=== PATIENT | male | born 1950 | race Caucasian/White ===

== ENCOUNTER 2019-10-06 10:39 | Inpatient (IN) ==
[2019-10-06] MEDS ORDERED: ONDANSETRON 4 MG/2 ML VIAL IV ONE (11:18)
[2019-10-06] MEDS ORDERED: HYDROmorphone 2 MG/1 ML VIAL IV STA ×3 (11:19→14:58)
[2019-10-06] MEDS ORDERED: SODIUM CHLORIDE 0.9% 1,000 ML IV STA (11:40)
[2019-10-06 11:50] LABS: Basophils # 0.1 10*3/uL (0.0-0.2); Basophils % 0.3 % (0.0-0.8); Eosinophils # 0.1 10*3/uL (0.0-0.87); Eosinophils % 0.6 % (0.00-10.9); Hematocrit 56.9 VOL% (42.0-52.0); Hemoglobin 18.6 GM/DL (14.0-18.0); Immature Granulocytes % 0.5 %; Immature Granulocytes Absolute 0.08 #; Lymphocytes # 1.7 10*3/uL (1.4-4.0); Lymphocytes % 10.9 % (21.2-54.2); Mean Corpuscular HGB Conc 32.7 GM/DL (32-36); Mean Corpuscular Volume 89.6 FL (87-102); Monocytes % 7.5 % (1.7-12.7); Neutrophils % 80.2 % (38.7-73.9); Platelet Count 246 T/CUMM (130-400); Red Blood Count 6.35 MC/CUMM (3.8-5.5); Red Cell Distribution Width 13.2 % (9.3-17.3); White Blood Count 15.5 T/CUMM (4-12)
[2019-10-06 12:19] LABS: Albumin 4.2 G/DL (3.4-5.0); Bilirubin,Total 0.8 MG/DL (0.2-1.0); Calcium 9.9 MG/DL (8.5-10.1); Osmolality,Calculated 279.8 MOS/KG (273-304)
[2019-10-06] MEDS ORDERED: ONDANSETRON 4 MG/2 ML VIAL IV STA (12:42)
[2019-10-06 14:07] LABS: Apearance,Urine CLEAR (Clear); Bilirubin,Urine Negative (Negative); Blood, Urine Negative (Negative); Glucose,Urine (UA) >=500 mg/dL (Negative); Ketones,Urine Negative (Negative); Mucus,Urine Occasional /LPF (Occasional); Nitrite,Urine Negative (Negative); Protein,Urine Negative; Squamous Epithelial Cell,Urine Occasional /HPF (0-10); Urine Color Yellow (Yellow); Urine Specific Gravity 1.046 (1.001-1.035); Urine Urobilinogen < 2.0 EU/DL (0.2-1.0)
[2019-10-06] MEDS ORDERED: PANTOPRAZOLE 40 MG VIAL IV STA (14:31)
[2019-10-06] MEDS ORDERED: CIPROFLOXACIN INJ 400 MG in PREMIX 1 EACH IV STA (14:32)
[2019-10-06] MEDS ORDERED: metroNIDAZOLE INJ 500 MG in PREMIX 1 EACH IV STA (14:32)
[2019-10-06] MEDS ORDERED: ONDANSETRON 4 MG/2 ML VIAL IV PRN (14:50)
[2019-10-06] MEDS: LACTATED RINGERS 1,000 ML IV SCH ×2 (15:29→23:42)
[2019-10-06] MEDS ORDERED: GLUCAGON 1 MG VIAL IM PRN (17:01)
[2019-10-06] MEDS ORDERED: DEXTROSE 50% 25 GM/50 ML VIAL IV PRN (17:01)
[2019-10-06] MEDS: CIPROFLOXACIN INJ 400 MG in PREMIX 1 EACH IV SCH (17:07)
[2019-10-06] MEDS: metroNIDAZOLE INJ 500 MG in PREMIX 1 EACH IV SCH (17:48)
[2019-10-06] MEDS: PANTOPRAZOLE 40 MG VIAL IV SCH (21:11)
[2019-10-06] MEDS: HYDROmorphone 2 MG/1 ML VIAL IV PRN (21:11)
[2019-10-06] MEDS: INSULIN LISPRO 100 UNIT/ML SUBCUT SCH (21:14)
[2019-10-07] MEDS: metroNIDAZOLE INJ 500 MG in PREMIX 1 EACH IV SCH ×3 (02:19→17:46)
[2019-10-07] MEDS: HYDROmorphone 2 MG/1 ML VIAL IV PRN ×2 (03:33→22:18)
[2019-10-07] MEDS: CIPROFLOXACIN INJ 400 MG in PREMIX 1 EACH IV SCH ×2 (04:47→16:41)
[2019-10-07 06:36] LABS: Albumin 3.2 G/DL (3.4-5.0); Bilirubin,Total 0.6 MG/DL (0.2-1.0); Calcium 9.2 MG/DL (8.5-10.1); Osmolality,Calculated 276.8 MOS/KG (273-304); Total Protein 6.3 G/DL (6.4-8.3)
[2019-10-07] MEDS: LACTATED RINGERS 1,000 ML IV SCH ×2 (06:40→16:53)
[2019-10-07 06:41] LABS: Basophils % 0.2 % (0.0-0.8); Eosinophils # 0.4 10*3/uL (0.0-0.87); Eosinophils % 3.6 % (0.00-10.9); Hematocrit 48.3 VOL% (42.0-52.0); Immature Granulocytes % 0.6 %; Immature Granulocytes Absolute 0.06 #; Lymphocytes # 2.2 10*3/uL (1.4-4.0); Lymphocytes % 22.6 % (21.2-54.2); Mean Corpuscular HGB Conc 32.3 GM/DL (32-36); Mean Corpuscular Volume 91.8 FL (87-102); Mean Platelet Volume 9.2 FL (9.6-12.0); Monocytes % 10.6 % (1.7-12.7); Neutrophils % 62.4 % (38.7-73.9); Red Blood Count 5.26 MC/CUMM (3.8-5.5); Red Cell Distribution Width 13.1 % (9.3-17.3)
[2019-10-07 06:52] LABS: Hemoglobin 15.6 GM/DL (14.0-18.0); Platelet Count 191 T/CUMM (130-400); White Blood Count 9.7 T/CUMM (4-12)
[2019-10-07] MEDS: INSULIN LISPRO 100 UNIT/ML SUBCUT SCH ×4 (08:39→22:23)
[2019-10-07] MEDS ORDERED: PANTOPRAZOLE 40 MG VIAL IV SCH (09:00)
[2019-10-07] MEDS: PANTOPRAZOLE 40 MG VIAL IV SCH ×2 (09:46→22:18)
[2019-10-07] MEDS ORDERED: BISACODYL 5 MG TABLET PO PRN (16:48)
[2019-10-08] MEDS: LACTATED RINGERS 1,000 ML IV SCH ×4 (00:21→23:21)
[2019-10-08] MEDS: metroNIDAZOLE INJ 500 MG in PREMIX 1 EACH IV SCH ×3 (02:07→17:22)
[2019-10-08] MEDS: CIPROFLOXACIN INJ 400 MG in PREMIX 1 EACH IV SCH ×2 (04:51→16:21)
[2019-10-08] MEDS: INSULIN LISPRO 100 UNIT/ML SUBCUT SCH ×4 (07:38→20:52)
[2019-10-08] MEDS ORDERED: propofoL 200 MG/20 ML VIAL IV ONE (09:00)
[2019-10-08] MEDS ORDERED: LIDOCAINE 100 MG/5 ML SYRINGE ONE (09:00)
[2019-10-08] MEDS: PANTOPRAZOLE 40 MG VIAL IV SCH ×2 (10:02→20:52)
[2019-10-08] MEDS: HYDROmorphone 2 MG/1 ML VIAL IV PRN ×2 (11:02→20:58)
[2019-10-09] MEDS: metroNIDAZOLE INJ 500 MG in PREMIX 1 EACH IV SCH ×3 (01:17→17:49)
[2019-10-09] MEDS: CIPROFLOXACIN INJ 400 MG in PREMIX 1 EACH IV SCH ×2 (04:15→16:45)
[2019-10-09] MEDS: INSULIN LISPRO 100 UNIT/ML SUBCUT SCH ×4 (08:03→21:06)
[2019-10-09] MEDS: PANTOPRAZOLE 40 MG VIAL IV SCH ×2 (08:33→21:07)
[2019-10-09] MEDS ORDERED: BUPIVACAINE MPF 0.25% 30 ML VIAL ONE (10:39)
[2019-10-09] MEDS ORDERED: LIDOCAINE 1%/EPI INJ 20 ML VIAL ONE (10:39)
[2019-10-09] MEDS ORDERED: TISSUE ADHESIVE 1 EACH APPLICATOR TOP ONE (10:39)
[2019-10-09] MEDS: LACTATED RINGERS 1,000 ML IV SCH (10:52)
[2019-10-09] MEDS ORDERED: LIDOCAINE 2% 5 ML VIAL ONE (13:06)
[2019-10-09] MEDS ORDERED: SEVOFLURANE 1 UNIT/15 MINUTE INH ONE (13:06)
[2019-10-09] MEDS ORDERED: propofoL 200 MG/20 ML VIAL IV ONE (13:06)
[2019-10-09] MEDS ORDERED: MIDAZOLAM 2 MG/2 ML VIAL ONE (13:07)
[2019-10-09] MEDS ORDERED: ONDANSETRON 4 MG/2 ML VIAL ONE (13:07)
[2019-10-09] MEDS ORDERED: ESMOLOL 100 MG/10 ML VIAL IV ONE (13:07)
[2019-10-09] MEDS ORDERED: fentaNYL 100 MCG/2 ML VIAL ONE (13:07)
[2019-10-09] MEDS ORDERED: KETOROLAC 30 MG/1 ML VIAL ONE (13:07)
[2019-10-09] MEDS ORDERED: GLYCOPYRROLATE 0.4 MG/2 ML VIAL ONE (13:07)
[2019-10-09] MEDS ORDERED: DEXAMETHASONE 4 MG/1 ML VIAL ONE (13:07)
[2019-10-09] MEDS ORDERED: ROCURONIUM 100 MG/10 ML VIAL IV ONE (13:08)
[2019-10-09] MEDS ORDERED: SUCCINYLCHOLINE 200 MG/10 ML VIAL ONE (13:08)
[2019-10-09] MEDS ORDERED: LACTATED RINGERS 1,000 ML IV ONE (13:08)
[2019-10-09] MEDS ORDERED: ACETAMINOPHEN 1,000 MG/100 ML VIAL IV ONE (13:08)
[2019-10-09] MEDS ORDERED: NEOSTIGMINE 10 MG/10 ML VIAL ONE (13:08)
[2019-10-09] MEDS ORDERED: PHENYLEPHRINE 1 MG/10 ML SYRINGE IV ONE (13:08)
[2019-10-09] MEDS ORDERED: diphenhydrAMINE 50 MG/1 ML VIAL IV PRN (13:10)
[2019-10-09] MEDS ORDERED: MEPERIDINE 25 MG/1 ML VIAL IV PRN (13:10)
[2019-10-09] MEDS ORDERED: ONDANSETRON 4 MG/2 ML VIAL IV PRN (13:10)
[2019-10-09] MEDS ORDERED: HYDROmorphone 2 MG/1 ML VIAL IV PRN (13:10)
[2019-10-09] MEDS ORDERED: PROMETHAZINE INJ 25 MG in SODIUM CHLORIDE 0.9% 50 ML IV PRN (13:10)
[2019-10-10] MEDS: LACTATED RINGERS 1,000 ML IV SCH ×2 (01:11→01:13)
[2019-10-10] MEDS: metroNIDAZOLE INJ 500 MG in PREMIX 1 EACH IV SCH (01:14)
[2019-10-10] MEDS: CIPROFLOXACIN INJ 400 MG in PREMIX 1 EACH IV SCH (04:20)
[2019-10-10 04:53] LABS: Calcium 9.1 MG/DL (8.5-10.1); Osmolality,Calculated 273.2 MOS/KG (273-304)
[2019-10-10 05:22] LABS: Basophils % 0.2 % (0.0-0.8); Eosinophils # 0.1 10*3/uL (0.0-0.87); Eosinophils % 0.5 % (0.00-10.9); Hematocrit 45.9 VOL% (42.0-52.0); Hemoglobin 15.6 GM/DL (14.0-18.0); Immature Granulocytes % 0.4 %; Immature Granulocytes Absolute 0.04 #; Lymphocytes # 1.8 10*3/uL (1.4-4.0); Lymphocytes % 16.6 % (21.2-54.2); Mean Corpuscular Volume 87.3 FL (87-102); Monocytes % 7.3 % (1.7-12.7); Platelet Count 206 T/CUMM (130-400); Red Blood Count 5.26 MC/CUMM (3.8-5.5); Red Cell Distribution Width 12.2 % (9.3-17.3); White Blood Count 10.8 T/CUMM (4-12)
[2019-10-10 05:33] VITALS: BP 132/57
[2019-10-10] MEDS: PANTOPRAZOLE 40 MG VIAL IV SCH (09:30)
[2019-10-10] MEDS: INSULIN LISPRO 100 UNIT/ML SUBCUT SCH (09:45)
== END 2019-10-10 10:00 | disposition home or self-care (01) | DRG 419 ==
LOC: N.ED 10:39 → N.EDINP 14:50 → N.TELES 15:59
PROVIDERS: ADMIT Internal Medicine; ATTEND Internal Medicine
PROC: LAPCHOL (2019-10-09 11:17)

== ENCOUNTER 2020-12-22 09:27 | Inpatient (IN) ==
[2020-12-22] MEDS ORDERED: ONDANSETRON 4 MG/2 ML VIAL IV STA (10:03)
[2020-12-22] MEDS ORDERED: SODIUM CHLORIDE 0.9% 1,000 ML IV STA (10:03)
[2020-12-22] MEDS ORDERED: MORPHINE 2 MG/1 ML SYRINGE IV STA (10:04)
[2020-12-22] MEDS ORDERED: PANTOPRAZOLE 40 MG VIAL IV STA (10:04)
[2020-12-22 10:14] LABS: Basophils % 0.2 % (0.0-0.8); Hematocrit 52.4 VOL% (42.0-52.0); Immature Granulocytes % 0.8 %; Immature Granulocytes Absolute 0.12 #; Lymphocytes # 1.4 10*3/uL (1.4-4.0); Lymphocytes % 9.7 % (21.2-54.2); Mean Corpuscular HGB Conc 32.4 GM/DL (32-36); Mean Corpuscular Volume 87.9 FL (87-102); Mean Platelet Volume 9.2 FL (9.6-12.0); Monocytes % 4.4 % (1.7-12.7); Neutrophils % 84.9 % (38.7-73.9); Platelet Count 339 T/CUMM (130-400); Red Blood Count 5.96 MC/CUMM (3.8-5.5); Red Cell Distribution Width 13.2 % (9.3-17.3); White Blood Count 14.9 T/CUMM (4-12)
[2020-12-22 10:38] LABS: Albumin 4.5 G/DL (3.4-5.0); Bilirubin,Total 0.6 MG/DL (0.20-1.00); Potassium 4.2 MMOL/L (3.5-5.1)
[2020-12-22] MEDS ORDERED: HYDROmorphone 2 MG/1 ML VIAL ONE (10:40)
[2020-12-22] MEDS ORDERED: HYDROmorphone 2 MG/1 ML VIAL IV STA (10:41)
[2020-12-22 11:01] LABS: Amorphous Crystals,Urine Few /HPF (Few); Bilirubin,Urine Negative (Negative); Blood, Urine Negative (Negative); Glucose,Urine (UA) >=500 mg/dL (Negative); Hyaline Casts,Urine 30 /LPF (0-3); Ketones,Urine 80 mg/dL (Negative); Mucus,Urine Few /LPF (Occasional); Nitrite,Urine Negative (Negative); Protein,Urine Negative; RBC,Urine 2 /HPF (0-4); Urine Appearance CLOUDY (Clear); Urine Color Amber (Yellow); Urine Specific Gravity 1.024 (1.001-1.035); Urine Urobilinogen < 2.0 EU/DL (0.2-1.0)
[2020-12-22] MEDS ORDERED: hydrALAZINE 20 MG/1 ML VIAL IV STA (11:21)
[2020-12-22] MEDS ORDERED: hydrALAZINE 20 MG/1 ML VIAL ONE (11:22)
[2020-12-22] MEDS ORDERED: HYDROmorphone 2 MG/1 ML VIAL IV ONE (12:30)
[2020-12-22] MEDS ORDERED: ACETAMINOPHEN 325 MG TABLET PO PRN (14:37)
[2020-12-22] MEDS: SODIUM CHLORIDE 0.9% 1,000 ML IV SCH ×2 (15:42→20:37)
[2020-12-22] MEDS: METOCLOPRAMIDE 10 MG TABLET PO SCH (15:44)
[2020-12-22] MEDS: metFORMIN 500 MG TABLET PO SCH ×2 (15:44→21:06)
[2020-12-22] MEDS: ONDANSETRON 4 MG/2 ML VIAL IV PRN (16:58)
[2020-12-22] MEDS: HYDROmorphone 2 MG/1 ML VIAL IV PRN ×2 (16:59→20:34)
[2020-12-22] MEDS: DUTASTERIDE 0.5 MG CAPSULE PO SCH (20:55)
[2020-12-22] MEDS: DOCUSATE SODIUM 100 MG CAPSULE PO SCH (20:55)
[2020-12-22] MEDS: MELATONIN 3 MG TABLET PO SCH (20:55)
[2020-12-23] MEDS: ONDANSETRON 4 MG/2 ML VIAL IV PRN ×5 (01:46→21:21)
[2020-12-23] MEDS: SODIUM CHLORIDE 0.9% 1,000 ML IV SCH ×3 (01:47→23:17)
[2020-12-23] MEDS: HYDROmorphone 2 MG/1 ML VIAL IV PRN ×5 (01:47→20:22)
[2020-12-23 05:04] LABS: Basophils % 0.2 % (0.0-0.8); Eosinophils % 0.1 % (0.00-10.9); Hematocrit 47.7 VOL% (42.0-52.0); Hemoglobin 15.4 GM/DL (14.0-18.0); Immature Granulocytes % 0.5 %; Immature Granulocytes Absolute 0.08 #; Lymphocytes # 1.7 10*3/uL (1.4-4.0); Lymphocytes % 10.5 % (21.2-54.2); Mean Corpuscular HGB Conc 32.3 GM/DL (32-36); Mean Corpuscular Volume 87.7 FL (87-102); Mean Platelet Volume 9.2 FL (9.6-12.0); Monocytes % 8.1 % (1.7-12.7); Neutrophils % 80.6 % (38.7-73.9); Platelet Count 240 T/CUMM (130-400); Red Blood Count 5.44 MC/CUMM (3.8-5.5); Red Cell Distribution Width 13.4 % (9.3-17.3)
[2020-12-23] MEDS: PANTOPRAZOLE 40 MG VIAL IV SCH (06:32)
[2020-12-23] MEDS: METOCLOPRAMIDE 10 MG TABLET PO SCH ×3 (06:33→17:05)
[2020-12-23] MEDS ORDERED: GLUCAGON 1 MG VIAL IM PRN (08:56)
[2020-12-23] MEDS ORDERED: DEXTROSE 50% 25 GM/50 ML VIAL IV PRN (08:56)
[2020-12-23 09:06] LABS: Albumin 3.2 G/DL (3.4-5.0); Bilirubin,Total 0.9 MG/DL (0.20-1.00); Calcium 8.6 MG/DL (8.5-10.1); Osmolality,Calculated 279.8 MOS/KG (273-304); Potassium 3.9 MMOL/L (3.5-5.1); Total Protein 6.1 G/DL (6.4-8.2)
[2020-12-23] MEDS: lisinopriL 20 MG TABLET PO SCH (09:06)
[2020-12-23] MEDS: DOCUSATE SODIUM 100 MG CAPSULE PO SCH ×2 (09:06→20:23)
[2020-12-23] MEDS: PROPRANOLOL 40 MG TABLET PO SCH (09:08)
[2020-12-23] MEDS: metFORMIN 500 MG TABLET PO SCH ×4 (09:08→20:24)
[2020-12-23] MEDS: CETIRIZINE 10 MG TABLET PO SCH (09:08)
[2020-12-23] MEDS: ENOXAPARIN 40 MG/0.4 ML SYRINGE SUBCUT SCH (09:08)
[2020-12-23] MEDS: INSULIN LISPRO 100 UNIT/ML SUBCUT SCH ×3 (12:45→20:23)
[2020-12-23] MEDS: MELATONIN 3 MG TABLET PO SCH (20:23)
[2020-12-23] MEDS: DUTASTERIDE 0.5 MG CAPSULE PO SCH (20:23)
[2020-12-24] MEDS: SODIUM CHLORIDE 0.9% 1,000 ML IV SCH ×3 (05:09→12:14)
[2020-12-24 05:29] LABS: Basophils % 0.3 % (0.0-0.8); Eosinophils # 0.2 10*3/uL (0.0-0.87); Eosinophils % 1.4 % (0.00-10.9); Hematocrit 41.4 VOL% (42.0-52.0); Immature Granulocytes % 0.3 %; Immature Granulocytes Absolute 0.03 #; Lymphocytes # 1.8 10*3/uL (1.4-4.0); Lymphocytes % 15.9 % (21.2-54.2); Mean Corpuscular HGB Conc 31.4 GM/DL (32-36); Mean Corpuscular Volume 90.6 FL (87-102); Monocytes % 10.3 % (1.7-12.7); Neutrophils % 71.8 % (38.7-73.9); Red Blood Count 4.57 MC/CUMM (3.8-5.5); Red Cell Distribution Width 13.4 % (9.3-17.3)
[2020-12-24 05:31] LABS: Platelet Count 159 T/CUMM (130-400)
[2020-12-24 05:49] LABS: Albumin 2.4 G/DL (3.4-5.0); Bilirubin,Total 0.8 MG/DL (0.20-1.00); Calcium 8.2 MG/DL (8.5-10.1); Osmolality,Calculated 274.7 MOS/KG (273-304); Potassium 4.3 MMOL/L (3.5-5.1); Total Protein 5.2 G/DL (6.4-8.2)
[2020-12-24] MEDS: PANTOPRAZOLE 40 MG VIAL IV SCH (06:27)
[2020-12-24] MEDS: ONDANSETRON 4 MG/2 ML VIAL IV PRN ×2 (06:49→16:10)
[2020-12-24] MEDS: HYDROmorphone 2 MG/1 ML VIAL IV PRN ×3 (06:50→20:33)
[2020-12-24] MEDS: PROPRANOLOL 40 MG TABLET PO SCH (09:53)
[2020-12-24] MEDS: METOCLOPRAMIDE 10 MG TABLET PO SCH ×3 (09:54→16:07)
[2020-12-24] MEDS: DOCUSATE SODIUM 100 MG CAPSULE PO SCH ×2 (09:55→20:31)
[2020-12-24] MEDS: CETIRIZINE 10 MG TABLET PO SCH (09:55)
[2020-12-24] MEDS: INSULIN LISPRO 100 UNIT/ML SUBCUT SCH ×4 (09:55→23:28)
[2020-12-24] MEDS: ENOXAPARIN 40 MG/0.4 ML SYRINGE SUBCUT SCH (09:56)
[2020-12-24] MEDS: lisinopriL 20 MG TABLET PO SCH ×2 (14:55→20:31)
[2020-12-24] MEDS: DUTASTERIDE 0.5 MG CAPSULE PO SCH (20:31)
[2020-12-24] MEDS: MELATONIN 3 MG TABLET PO SCH (20:31)
[2020-12-25] MEDS: HYDROmorphone 2 MG/1 ML VIAL IV PRN ×3 (02:00→18:24)
[2020-12-25] MEDS: SODIUM CHLORIDE 0.9% 1,000 ML IV SCH (02:47)
[2020-12-25] MEDS: PANTOPRAZOLE 40 MG VIAL IV SCH (06:22)
[2020-12-25 06:28] LABS: Basophils % 0.1 % (0.0-0.8); Eosinophils # 0.2 10*3/uL (0.0-0.87); Eosinophils % 2.8 % (0.00-10.9); Hematocrit 39.5 VOL% (42.0-52.0); Hemoglobin 12.4 GM/DL (14.0-18.0); Immature Granulocytes % 0.5 %; Immature Granulocytes Absolute 0.04 #; Lymphocytes # 1.2 10*3/uL (1.4-4.0); Lymphocytes % 15.9 % (21.2-54.2); Mean Corpuscular HGB Conc 31.4 GM/DL (32-36); Mean Corpuscular Volume 90.4 FL (87-102); Mean Platelet Volume 9.9 FL (9.6-12.0); Neutrophils % 71.7 % (38.7-73.9); Platelet Count 166 T/CUMM (130-400); Red Blood Count 4.37 MC/CUMM (3.8-5.5); Red Cell Distribution Width 13.2 % (9.3-17.3); White Blood Count 7.8 T/CUMM (4-12)
[2020-12-25 07:04] LABS: Albumin 2.4 G/DL (3.4-5.0); Bilirubin,Total 1.1 MG/DL (0.20-1.00); Osmolality,Calculated 276.4 MOS/KG (273-304); Potassium 3.4 MMOL/L (3.5-5.1); Total Protein 5.5 G/DL (6.4-8.2)
[2020-12-25] MEDS: INSULIN LISPRO 100 UNIT/ML SUBCUT SCH ×4 (08:03→21:41)
[2020-12-25] MEDS: METOCLOPRAMIDE 10 MG TABLET PO SCH ×3 (08:58→17:17)
[2020-12-25] MEDS: DOCUSATE SODIUM 100 MG CAPSULE PO SCH ×2 (08:58→21:11)
[2020-12-25] MEDS: CETIRIZINE 10 MG TABLET PO SCH (08:58)
[2020-12-25] MEDS: PROPRANOLOL 40 MG TABLET PO SCH (08:58)
[2020-12-25] MEDS: ENOXAPARIN 40 MG/0.4 ML SYRINGE SUBCUT SCH (09:00)
[2020-12-25] MEDS ORDERED: POTASSIUM CHLORIDE 10 MEQ TABLET PO ONE (11:00)
[2020-12-25] MEDS: MELATONIN 3 MG TABLET PO SCH (20:25)
[2020-12-25] MEDS: lisinopriL 20 MG TABLET PO SCH (20:26)
[2020-12-25] MEDS: DUTASTERIDE 0.5 MG CAPSULE PO SCH (20:26)
[2020-12-26] MEDS: ONDANSETRON 4 MG/2 ML VIAL IV PRN (01:18)
[2020-12-26] MEDS: HYDROmorphone 2 MG/1 ML VIAL IV PRN (01:18)
[2020-12-26 05:53] LABS: Albumin 2.2 G/DL (3.4-5.0); Bilirubin,Total 0.8 MG/DL (0.20-1.00); Calcium 8.1 MG/DL (8.5-10.1); Osmolality,Calculated 275.5 MOS/KG (273-304); Potassium 3.6 MMOL/L (3.5-5.1); Total Protein 5.3 G/DL (6.4-8.2)
[2020-12-26] MEDS: PANTOPRAZOLE 40 MG VIAL IV SCH (05:56)
[2020-12-26] MEDS: SODIUM CHLORIDE 0.9% 1,000 ML IV SCH ×4 (05:57→09:10)
[2020-12-26] MEDS: INSULIN LISPRO 100 UNIT/ML SUBCUT SCH (07:20)
[2020-12-26 07:50] VITALS: BP 148/87
[2020-12-26] MEDS ORDERED: INSULIN ASPART PROTAMINE/ASPART 70/30 100 UNIT/ML SUBCUT SCH (08:00)
[2020-12-26] MEDS: METOCLOPRAMIDE 10 MG TABLET PO SCH (09:14)
[2020-12-26] MEDS: CETIRIZINE 10 MG TABLET PO SCH (09:14)
[2020-12-26] MEDS: PROPRANOLOL 40 MG TABLET PO SCH (09:15)
[2020-12-26] MEDS: DOCUSATE SODIUM 100 MG CAPSULE PO SCH (09:16)
[2020-12-26] MEDS: ENOXAPARIN 40 MG/0.4 ML SYRINGE SUBCUT SCH (09:17)
== END 2020-12-26 10:15 | disposition home or self-care (01) | DRG 440 ==
LOC: N.ED 09:27 → N.EDINP 12:07 → N.5E 14:37
PROVIDERS: ADMIT Internal Medicine; ATTEND Internal Medicine